=== PATIENT | male | born 1955 | race Caucasian/White ===

== ENCOUNTER 2016-12-11 13:23 | Day surgery (SDC) | payer OTHER ==
[~2016-12-11 13:23] MED LIST: LIDOCAINE 2% MDV (20MG/ML) 20ML VIAL IV ONE; PROPOFOL 10 MG/ML VIAL IV ONE
--- NOTE | 2016-12-17 09:30 | Operative Note ---
DATE OF SURGERY: 12/11/2016 REFERRING PROVIDER: Alvarado Hays MD, FACP PREOPERATIVE DIAGNOSIS: Personal history of colon polyps. POSTOPERATIVE DIAGNOSIS: Colon polyps and sigmoid diverticulosis. OPERATION: COLONOSCOPY with cold snare and cold forceps polypectomies. Preparation Quality: Good . Estimated Blood Loss: Minimal. PROCEDURE: After informed consent was obtained, the patient was placed in the left lateral decubitus position in the endoscopy suite, sedated and monitored by the Department of Anesthesia. Digital rectal exam was unremarkable. A well-lubricated PCF-180 colonoscope was inserted into the rectum and advanced to the cecum. The cecum and cecal bulb were unremarkable. The ileocecal valve and appendiceal orifice were unremarkable. In the ascending colon, there was a 4-5 mm sessile polyp removed with a cold snare. Minimal bleeding was noted. The polyp was retrieved without difficulty. The transverse colon revealed another diminutive polyp, and this was removed with a cold forceps. The remainder of the transverse colon and ascending colon were otherwise unremarkable. The descending colon revealed 2 polyps, 1 removed with a cold snare, the other with a cold snare, and then a cold forceps to remove a small amount of residual tissue. There was minimal bleeding at each of these sites. The polyps were retrieved without difficulty. The remainder of the descending colon was unremarkable. The sigmoid colon did reveal scattered diverticula. The rectum was unremarkable in forward and in J-turn views. The endoscope was straightened, the rectal ampulla deflated and the endoscope was removed. RECOMMENDATIONS: The patient should follow a high-fiber diet and resume his medications. He will require repeat exam in 3-5 years pending tissue histology. As always, thank you for allowing me to participate in the health care of your patients. Eddie Kern DO CC: ALVARADO HAYS MD, FACP [facility]
== END 2016-12-11 16:05 | disposition home or self-care (01) ==
LOC: HOP 13:23
PROVIDERS: ATTEND Internal Medicine Gastroenterology
DX: Z86.010 Personal history of colon polyps (principal); D12.4 Benign neoplasm of descending colon; D12.3 Benign neoplasm of transverse colon; E78.00 Pure hypercholesterolemia, unspecified; I25.10 Atherosclerotic heart disease of native coronary artery without angina pectoris

== ENCOUNTER 2018-04-04 11:45 | Emergency (ER) | payer OTHER ==
--- NOTE | 2018-04-04 12:35 | Emergency Department Record ---
History of Present Illness - General Chief complaint: ENT Stated complaint: SORE THROAT /WEAK Time Seen by Provider: 04/04/18 12:30 Source: Patient Mode of Arrival: Ambulatory - History of Present Illness Initial comments: Patient with weakness and hoarse voice for 5 days and congestion and No vomiting or diarrhea and had the same thing but was over it in 3 days Onset/Timin -: Days(s) Severity: Moderate Severity scale (1-10): 1 Quality: Aching Consistency: Constant - Related Data Home Medications Medication Instructions Recorded Confirmed Last Taken Aspirin 81 mg PO DAILY 04/04/18 04/04/18 1 Day Ago ~04/03/18 Previous Rx's Medication Instructions Recorded Azithromycin 250 mg PO DAILY #6 tablet 04/04/18 Allergies Allergy/AdvReac Type Severity Reaction Status Date / Time No Known Drug Allergies Allergy Verified 04/04/18 12:00 Travel Screening - Travel/Exposure Within Last 30 Days Have you traveled within the last 30 days?: No - Travel/Exposure Within Last Year Have you traveled outside the [place] in the last year?: No - Additonal Travel Details Have you been exposed to anyone with a communicable illness?: No - Travel Symptoms Symptom Screening: None Review of Systems Reviewed: No additional complaints except as noted below Constitutional: Reports: As per HPI. Denies: Chills, Fever, Malaise, Night sweats, Weakness, Weight change Eyes: Reports: As per HPI. Denies: Eye discharge, Eye pain, Photophobia, Vision change ENT: Reports: As per HPI. Denies: Congestion, Dental pain, Ear pain, Epistaxis , Hearing loss, Throat pain Respiratory: Reports: As per HPI. Denies: Cough, Dyspnea, Hemoptysis, Stridor, Wheezes Cardiovascular: Reports: As per HPI. Denies: Arrhythmia, Chest pain, Dyspnea on exertion, Edema, Murmurs, Orthopnea, Palpitations, Paroxysmal nocturnal dyspnea, Rheumatic Fever, Syncope Endocrine: Reports: As per HPI. Denies: Fatigue, Heat or cold intolerance, Polydipsia, Polyuria Gastrointestinal: Reports: As per HPI. Denies: Abdominal pain, Constipation, Diarrhea, Hematemesis, Hematochezia, Melena, Nausea, Vomiting Genitourinary: Reports: As per HPI. Denies: Dysuria, Frequency, Hematuria, Incontinence, Retention, Testicular pain, Testicular mass, Urgency Musculoskeletal: Reports: As per HPI. Denies: Arthralgia, Back pain, Gout, Joint swelling, Myalgia, Neck pain Skin: Reports: As per HPI. Denies: Bruising, Change in color, Change in hair/ nails, Lesions, Pruritus, Rash Neurological: Reports: As per HPI. Denies: Abnormal gait, Confusion, Headache, Numbness, Paresthesias, Seizure, Tingling, Tremors, Vertigo, Weakness Psychiatric: Reports: As per HPI. Denies: Anxiety, Auditory hallucinations, Depression, Homicidal thoughts, Suicidal thoughts, Visual hallucinations Hematological/Lymphatic: Reports: As per HPI. Denies: Anemia, Blood Clots, Easy bleeding, Easy bruising, Swollen glands Past Medical History - SOCIAL HISTORY Smoking Status: Never smoker Alcohol Use: Rare, Occasional Drug Use: None - RESPIRATORY Hx Respiratory Disorders: No - CARDIOVASCULAR Hx Cardio Disorders: Yes Hx Irregular Heartbeat: Yes (hx of A-fib) - NEURO Hx Neuro Disorders: No - GI Hx GI Disorders: Yes Hx of Polyps: Yes - Hx Genitourinary Disorders: No - ENDOCRINE Hx Endocrine Disorders: No - MUSCULOSKELETAL Hx Musculoskeletal Disorders: Yes Hx Arthritis: Yes (shoulder-right) Comment:: tennis elbow occ. - PSYCH Hx Psych Problems: Yes Hx Depression: Yes - HEMATOLOGY/ONCOLOGY Hx Hematology/Oncology Disorders: No Family Medical History Any Significant Family History?: Yes Hx Cancer: Mother *Cancer Comment: colon Hx Heart Disease: Father Physical Exam - General General Appearance: Alert, Oriented x3, Cooperative, No acute distress - Head Head exam: Normal inspection - Eye Eye exam: Normal appearance, PERRL Pupils: Normal accommodation - ENT ENT exam: Normal exam, Mucous membranes moist, Normal external ear exam, Normal orophraynx, TM's normal bilaterally Ear exam: Normal external inspection. negative: External canal tenderness Nasal Exam: Normal inspection. negative: Discharge, Sinus tenderness Mouth exam: Normal external inspection, Tongue normal Teeth exam: Normal inspection. negative: Dental caries Throat exam: Normal inspection. negative: Tonsillar erythema, Tonsillar exudate - Neck Neck exam: Normal inspection, Full ROM. negative: Tenderness - Respiratory Respiratory exam: Normal lung sounds bilaterally. negative: Respiratory distress - Cardiovascular Cardiovascular Exam: Regular rate, Normal rhythm, Normal heart sounds - GI/Abdominal GI/Abdominal exam: Soft, Normal bowel sounds. negative: Tenderness - Rectal Rectal exam: Deferred - exam: Deferred - Extremities Extremities exam: Normal inspection, Full ROM, Normal capillary refill. negative: Tenderness - Back Back exam: Reports: Normal inspection, Full ROM. Denies: Muscle spasm, Rash noted, Tenderness - Neurological Neurological exam: Alert, Normal gait, Oriented X3, Reflexes normal - Psychiatric Psychiatric exam: Normal affect, Normal mood - Skin Skin exam: Dry, Intact, Normal color, Warm Course Vital Signs 04/04/18 11:54 Temperature 98.3 F Pulse Rate 74 Respiratory 18 Rate Blood Pressure 132/80 Pulse Ox 96 Disposition Clinical Impression: Laryngitis, Bronchitis Disposition: Home, Self-Care Condition: (1) Good Instructions: Laryngitis (ED), Acute Bronchitis (ED) Additional Instructions: follow up with family in 3 days Prescriptions: Azithromycin 250 mg PO DAILY #6 tablet Forms: Patient Portal Access Time of Disposition: 12:55 Quality - Quality Measures Quality Measures: N/A - Blood Pressure Screening Does Patient Have Any of the Following: No Blood Pressure Classification: Pre-Hypertensive BP Reading Systolic Measurement: 132 Diastolic Measurement: 80 Screening for High Blood Pressure: < Pre-Hypertensive BP, F/U Documented > [ [id number]] Pre-Hypertensive Follow-up Interventions: Referral to alternative/primary care provider.
[2018-04-04 12:46] LABS: INFLUENZA A NEGATIVE (NEGATIVE); INFLUENZA B NEGATIVE (NEGATIVE); STREP A SCREEN NEGATIVE (NEGATIVE)
== END 2018-04-04 12:59 | disposition home or self-care (01) ==
LOC: ER 11:45
DX: J20.9 Acute bronchitis, unspecified (principal); R53.1 Weakness; I48.91 Unspecified atrial fibrillation
CPT/HCPCS: 87400; 87880; 99282

== ENCOUNTER 2019-01-10 06:52 | Day surgery (SDC) | payer BC ==
[~2019-01-10 06:52] MED LIST changes: +ACETAMINOPHEN 1,000 MG/100 ML BTL IV ONE; +CEFAZOLIN 2 Gram 2 GM/50 ML BAG IVPB ONE; -LIDOCAINE 2% MDV (20MG/ML) 20ML VIAL IV ONE; -PROPOFOL 10 MG/ML VIAL IV ONE
[2019-01-10] MEDS ORDERED: SEVOFLURANE 250 ML INH ONE (06:53)
[2019-01-10] MEDS ORDERED: PROPOFOL 10 MG/ML VIAL IV ONE (06:53)
[2019-01-10] MEDS ORDERED: MIDAZOLAM HCL 2MG/2ML VIAL IV ONE (06:53)
[2019-01-10] MEDS ORDERED: BUPIVACAINE 0.25% W/EPI MPF 30ML VIAL IVP ONE (06:53)
[2019-01-10] MEDS ORDERED: FENTANYL PF 100MCG/2ML VIAL IV ONE (06:53)
[2019-01-10] MEDS ORDERED: ONDANSETRON HCL IV 4 MG/2 ML VIAL IVP ONE (06:53)
[2019-01-10] MEDS ORDERED: DEXAMETHASONE 4 MG/ML 1ML VIAL IVP ONE (06:53)
[2019-01-10] MEDS ORDERED: HYDROCODONE/APAP 5/325MG TABLET PO ONE (06:53)
[2019-01-10] MEDS ORDERED: LIDOCAINE 2% MDV (20MG/ML) 20ML VIAL IV ONE (06:53)
--- NOTE | 2019-01-11 08:30 | Operative Note ---
DATE OF SURGERY: 01/10/2019 Surgeon: Moshe Jimenes DO PREOPERATIVE DIAGNOSIS: Incarcerated umbilical hernia. POSTOPERATIVE DIAGNOSIS: Incarcerated umbilical hernia. OPERATION: Open umbilicus herniorrhaphy which mesh. Indication: The patient is a 63-year-old male who is having ongoing periumbilical pain. On exam, he did have a [id number] size incarcerated umbilical hernia. We did discuss repair. Risks, benefits, and alternatives were discussed. Risks include bleeding, infection, acute or chronic pain, recurrence. He understood this fully. Therefore, consent was signed and questions answered. PROCEDURE: He was taken to the operating room and placed in a supine position. General anesthesia was administered per the department of anesthesia. The patient's abdomen was shaved of hair and prepped and draped in the usual fashion. At this time, the periumbilical region was anesthetized with a total of 10 mL of 0.25% Sensorcaine with epinephrine. A 3 cm curvilinear infraumbilical incision was made. This was carried down to the anterior rectus fascia. The umbilical stalk was encircled and dissected free from the underlying hernia sac. Clean circumferential fascial edges were obtained. The hernia sac was then amputated and passed off the field. The hernia itself measured about 1 cm. At this time, a 4.[address] mesh was obtained. This was placed in the intraperitoneal position. The upper skirt was sutured to the anterior rectus fascia with 2-0 Vicryl. This was done in 4 spots. The tails were trimmed and they overlapped the fascia as well. At this time, the skin was tacked down to the fascia with 3-0 Vicryl. The wound was closed with 4-0 Vicryl. Dermabond was placed. He was taken to the recovery room in satisfactory condition. FINDINGS ON SURGERY: Incarcerated umbilical hernia repaired as above. CC: ALVARADO SMILEY MD, FACP MTDD
== END 2019-01-10 10:20 | disposition home or self-care (01) ==
LOC: SUR 06:52
PROVIDERS: ATTEND Surgery
DX: K42.0 Umbilical hernia with obstruction, without gangrene (principal); E78.00 Pure hypercholesterolemia, unspecified
CPT/HCPCS: 49587; 00840; 93005; J2405; J3010; J0690